=== PATIENT | male | born 1975 | race Caucasian/White ===

== ENCOUNTER 2017-10-23 14:13 | Emergency (ER) | payer MEDICAID, SELFPAY ==
[2017-10-23 14:16] VITALS: BP 133/80; PULSE 92; RESP 18; TEMP 37; O2SAT 98
--- NOTE | 2017-10-23 14:40 | W.ED.GENAD ---
Discharge Plan Disposition Patient Disposition: HOME Condition: Stable Discharge Details Chief Complaint: GenMedical Clinical Impression: Elevated INR Primary Care Provider: Eugenia Dia ED Provider: Ede Landers Home Meds and New Rx's Prescriptions: Continue metoprolol succinate 50 MG tablet extended release 24 hr 50 mg PO DAILY RF: 0 ASPIRIN 81 mg PO DAILY RF: 0 metoprolol succinate 25 MG tablet extended release 24 hr 25 mg PO DAILY Qty: 90 RF: 0 allopurinol 300 MG tablet 300 mg PO DAILY Qty: 90 RF: 0 isosorbide mononitrate 30 MG tablet extended release 24 hr 30 mg PO DAILY Qty: 90 RF: 0 magnesium oxide 500 MG capsule 500 mg PO BID Qty: 60 RF: 0 multivitamin 1 EACH capsule 1 cap PO DAILY RF: 0 spironolactone 50 MG tablet 25 mg PO DAILY RF: 0 budesonide-formoterol [Symbicort] 60 PUFF HFA aerosol inhaler 1 puff Inhalation BID RF: 0 albuterol sulfate [ProAir RespiClick] 90 MCG aerosol powdr breath activated 90 mcg Inhalation Q4H PRN PRNRF: 0 atorvastatin [Lipitor] 80 MG tablet 20 mg PO QPM RF: 0 torsemide 20 MG tablet 20 mg PO BID RF: 0 pantoprazole [Protonix] 40 MG recon soln 40 mg PO BID RF: 0 pregabalin [Lyrica] 100 mg Capsule 1 tab PO BID RF: 0 lisdexamfetamine [Vyvanse] 60 mg Capsule 1 cap PO DAILY RF: 0 venlafaxine 150 mg Tablet Extended Release 24hr 1 tab PO DAILY RF: 0 lisinopril 5 MG tablet 5 mg PO DAILY RF: 0 Discontinued warfarin [Coumadin] 7.5 MG tablet PO QPM RF: 0 Discharge Instructions Additional Instructions: hold tomorrow and monday's dose of coumadin and have your inr rechecked by your primary care provider's office and get further dosing recommendations from them if you have difficulty breathing, severe weakness or chest pain or have bleeding anywhere return to the emergency department Discharge Data Discharge Physician: Ede Landers Medical Decision Making [facility] Narrative Medical decision making narrative: 42 yo male with hx of heart valve replacement on coumadin who comes in with cc of elevated inr. Was in the office for routine visit and the machine was over 8 and couldn't give exact number so was sent here. The patient is entirely asymptomatic and has no complaints. I advisd the pt our lab results will not be of benefit as it also can't give exact high number. Based on uptodate recs will give oral vitamin K and have him hold next 2 doses of coumadin and have inr rechecked monday with pcp, return precautions given HPI - General Adult General Mode of arrival: ambulatory. Date/Time Provider Initiated Documentation: 10/23/17 14:30. Limitations to Documentation: no limitations. Information obtained by: patient. History of Present Illness 42 year old M presents to the emergency department with the chief complaint of elevated inr, Patient started experiencing this unknown Patient notes no other symptoms.. Patient did receive the following treatments prior to arrival, none Related Data Home Medications Medication Instructions Recorded Confirmed multivitamin 1 cap PO DAILY 01/09/15 10/23/17 metoprolol succinate 50 mg PO DAILY tab-cap 06/10/15 10/23/17 Aspirin 81 mg PO DAILY 06/18/15 10/23/17 lisinopril 5 mg PO DAILY 08/10/16 10/23/17 albuterol sulfate [ProAir 90 mcg INHALATION Q4H PRN PRN 01/02/17 10/23/17 RespiClick] atorvastatin [Lipitor] 20 mg PO QPM 01/02/17 10/23/17 budesonide-formoterol [Symbicort] 1 puff INHALATION BID 01/02/17 10/23/17 pantoprazole [Protonix] 40 mg PO BID 01/02/17 10/23/17 spironolactone 25 mg PO DAILY 01/02/17 10/23/17 torsemide 20 mg PO BID 01/02/17 10/23/17 lisdexamfetamine [Vyvanse] 1 cap PO DAILY 10/23/17 10/23/17 pregabalin [Lyrica] 1 tab PO BID 10/23/17 10/23/17 venlafaxine 1 tab PO DAILY 10/23/17 10/23/17 Previous Rx's Medication Instructions Recorded allopurinol 300 mg PO DAILY #90 tablet 11/02/16 isosorbide mononitrate 30 mg PO DAILY #90 tabcr 11/02/16 metoprolol succinate 25 mg PO DAILY #90 tabcr 11/02/16 Allergies Allergy/AdvReac Type Severity Reaction Status Date / Time ibuprofen AdvReac makes pain Unverified 10/23/17 14:18 worse Penicillins AdvReac Nausea Unverified 10/23/17 14:18 sumatriptan [From Imitrex] AdvReac Nausea Unverified 10/23/17 14:18 sumatriptan succinate AdvReac Nausea Unverified 10/23/17 14:18 [From Imitrex] topiramate AdvReac sharp pain Unverified 10/23/17 14:18 in back of head General Stated Complaint: GenMedical HANH: 5 Review of Systems Review of Systems All systems reviewed & are unremarkable except as noted in HPI and below Constitutional Denies chills, Denies fever(s) and Denies weakness Eyes Patient Denies loss of vision ENT Denies change in voice Cardiovascular Denies chest pain and Denies dyspnea Respiratory Denies dyspnea Gastrointestinal Denies abdominal pain, Denies nausea and Denies vomiting Genitourinary Denies dysuria Musculoskeletal Denies joint swelling Integumentary/Breasts Denies rash Neurologic Denies loss of vision and Denies weakness Psychiatric Denies depression Endocrine Denies cold intolerance and Denies heat intolerance Allergic/Immunologic Reports urticaria PFSH Social History Smoking/Tobacco Use Status: Current every day Exam Const General: no acute distress Orientation: alert HENMD Head: normal to inspection Ears: external ears normal General nose exam: external nose normal Mouth: moist mucous membranes Eyes General: appearance normal, both eyes and all related structures Neck Neck: normal visual inspection Resp Effort & Inspection: normal respiratory effort and able to speak in complete sentences Cardio Rate: regular rate Skin General skin exam: no rashes or lesions noted Neuro General: alert and oriented x3 Extrem General: normal to inspection Psych Mental Status: mental status grossly normal Course Vital Signs Temperature 37 C 10/23/17 14:16 Pulse 92 H 10/23/17 14:16 Respiratory Rate 10/23/17 14:16 Blood Pressure 133/80 10/23/17 14:16 Pulse Oximetry 98 10/23/17 14:16 Temperature 37 C 10/23/17 14:16 Pulse 92 H 10/23/17 14:16 Respiratory Rate 18 10/23/17 14:16 Blood Pressure 133/80 10/23/17 14:16 Pulse Oximetry 98 09/10/18 14:16
[2017-10-23 14:50] VITALS: BP 133/80; PULSE 92; RESP 18; TEMP 37; O2SAT 98
[2017-10-23] MEDS: Phytonadione 5 MG TABLET PO (14:50)
--- NOTE | 2017-10-23 14:50 | AC.ASSESS ---
Asthma Clinic Visit
== END 2017-10-23 15:55 | disposition home or self-care (01) ==
PROVIDERS: Emergency Provider Emergency Medicine; PCP Nurse Practitioner Family
DX: R79.1 Abnormal coagulation profile (principal); T45.515A Adverse effect of anticoagulants, initial encounter; Z79.01 Long term (current) use of anticoagulants; Z95.2 Presence of prosthetic heart valve
CPT/HCPCS: 99283

== ENCOUNTER 2017-10-23 15:04 | Outpatient (REF) | payer MEDICAID, SELFPAY ==
[2017-10-23 19:32] LABS: Anion Gap 11.7 mmol/L (3-11); BUN 34 mg/dL (7-18); CO2 24.3 mmol/L (21.0-32.0); CREATININE 1.38 mg/dL (0.70-1.30); Calcium 8.5 mg/dL (8.5-10.1); Chloride 101 mmol/L (98-107); Estimated GFR 56.51 (mL/min/1.73m2); Glucose 100 mg/dL (70-100); Potassium 4.2 mmol/L (3.5-5.1); Sodium 137 mmol/L (136-145)
== END 2017-10-23 15:24 ==
LOC: NCHCN 15:04
PROVIDERS: PCP Nurse Practitioner Family; Visit Provider Nurse Practitioner Family
DX: I50.22 Chronic systolic (congestive) heart failure (principal)
CPT/HCPCS: 80048

== ENCOUNTER 2018-06-04 10:09 | Outpatient (REF) | payer MEDICAID, SELFPAY ==
[2018-06-04 13:22] LABS: Hemoglobin A1C 6.3 % (4.5-6.2)
[2018-06-04 13:28] LABS: Anion Gap 12.7 mmol/L (3-11); BUN 33 mg/dL (7-18); CO2 25.3 mmol/L (21.0-32.0); CREATININE 1.65 mg/dL (0.70-1.30); Calcium 9.1 mg/dL (8.5-10.1); Chloride 100 mmol/L (98-107); Estimated GFR 45.98 (mL/min/1.73m2); Glucose 174 mg/dL (70-100); Magnesium 2.2 mg/dL (1.8-2.4); Potassium 4.3 mmol/L (3.5-5.1); Sodium 138 mmol/L (136-145)
== END 2018-06-04 10:29 ==
LOC: NCHCN 10:09
PROVIDERS: PCP Nurse Practitioner Family; Visit Provider Nurse Practitioner Family
DX: I50.22 Chronic systolic (congestive) heart failure (principal)
CPT/HCPCS: 80048; 83036; 83735

== ENCOUNTER 2018-07-03 09:10 | Outpatient (REF) | payer MEDICAID, SELFPAY ==
[2018-07-03 14:00] LABS: Anion Gap 7.3 mmol/L (3-11); BUN 39 mg/dL (7-18); CO2 30.7 mmol/L (21.0-32.0); Calcium 9.6 mg/dL (8.5-10.1); Chloride 92 mmol/L (98-107); Estimated GFR 55.58 (mL/min/1.73m2); Glucose 125 mg/dL (70-100); Potassium 5.4 mmol/L (3.5-5.1); Sodium 130 mmol/L (136-145)
== END 2018-07-03 09:30 ==
LOC: NCHCN 09:10
PROVIDERS: PCP Nurse Practitioner Family; Visit Provider Nurse Practitioner Family
DX: I42.9 Cardiomyopathy, unspecified (principal)
CPT/HCPCS: 80048